=== PATIENT | male | born 1970 | race Caucasian/White ===

== ENCOUNTER → 2023-09-05 06:20 | Outpatient (REF) | payer MEDICARE, OTHER, SELFPAY ==
[2023-09-05 06:49] LABS: % Eosinophils 2.4 % (0-6); % Immature Granulocytes 0.2 % (0-0.5); % Lymphocytes 43.9 % (20.5-51.1); % Monocytes 9.6 % (1.7-9.3); % Neutrophils 42.9 % (42.2-75.2); Absolute Basophils 0.1 10^3/uL (0-0.2); Absolute Eosinophils 0.1 10^3/uL (0-0.7); Absolute Lymphocytes 2.6 10^3/uL (1.2-3.4); Absolute Monocytes 0.6 10^3/uL (0.1-0.6); Absolute Neutrophils 2.6 10^3/uL (1.4-6.5); Hematocrit 44.8 % (39.0-52.0); Hemoglobin 15.1 g/dL (13.0-18.0); Mean Corp Hgb Conc. 33.7 g/dL (33.0-37.0); Mean Corpuscular Hgb 28.3 pg (27.0-31.0); Mean Corpuscular Volume 83.9 fL (80.0-94.0); Mean Platelet Volume 9.7 fL (7.4-10.4); Nucleated Red Blood Cells % 0 % (-); Platelet Count 169 10^3/uL (130-400); Red Blood Cell Count 5.34 10^6/uL (4.70-6.10); Red Cell Dist. Width 13.6 % (11.5-14.5); White Blood Cell Count 5.9 10^3/uL (4.8-10.8)
[2023-09-05 07:30] LABS: ALT (SGPT) 19 U/L (0-50); AST (SGOT) 38 U/L (17-59); Alkaline Phosphatase 63 U/L (38-126); Blood Urea Nitrogen 10 mg/dl (9-20); Calcium 9.7 mg/dl (8.4-10.2); Carbon Dioxide 32 mmol/L (22-30); Chloride 104 mmol/L (98-107); Glucose 109 mg/dl (70-99); HDL Cholesterol 44 mg/dl; LDL Cholesterol, Calculated 43 mg/dl; Potassium 4.3 mmol/L (3.5-5.1); Sodium 139 mmol/L (135-145); Total Cholesterol 129 mg/dl (50-199); Total Protein 6.7 g/dl (6.3-8.2); Triglyceride 214 mg/dl (10-149); Very Low Density Lipoprotein 42 mg/dl (0-30); eGFR > 60.00
[2023-09-05 07:34] LABS: Free T4 1.45 ng/dl (0.78-2.19)
[2023-09-05 09:22] LABS: Glycohemoglobin (HgbA1c) 5.9 % (4.0-5.6)
[2023-09-06 21:27] LABS: % Free Testosterone 1.7 % (1.6-2.9); Free Testosterone 48 pg/mL (47-244); Sex Hormone Binding Globulin 35 nmol/L (19-76); Total Testosterone 279 ng/dL (300-890)
== END ==
LOC: REG 06:20
PROVIDERS: ATTENDING PHYSICIAN Student in an Organized Health Care Education/Training Program
DX: D35.2 Benign neoplasm of pituitary gland (principal); E23.0 Hypopituitarism; E11.9 Type 2 diabetes mellitus without complications; E03.9 Hypothyroidism, unspecified; E78.5 Hyperlipidemia, unspecified
CPT/HCPCS: 36415; 80053; 80061; 83036; 84270; 84402; 84403; 84439; 84443; 85025

== ENCOUNTER → 2023-09-22 06:38 | Outpatient (REF) | payer MEDICARE, OTHER, SELFPAY ==
[2023-09-22 08:03] LABS: Depakane 74.7 ug/ml (50.0-120.0)
[2023-09-22 08:29] LABS: Prolactin 12.8 ng/ml (3.7-17.9)
[2023-09-22 08:30] LABS: ALT (SGPT) 18 U/L (0-50); AST (SGOT) 31 U/L (17-59); Albumin 4.1 g/dl (3.5-5.0); Alkaline Phosphatase 71 U/L (38-126); Blood Urea Nitrogen 15 mg/dl (9-20); Calcium 9.5 mg/dl (8.4-10.2); Carbon Dioxide 27 mmol/L (22-30); Chloride 107 mmol/L (98-107); Glucose 106 mg/dl (70-99); Magnesium 1.7 mg/dl (1.6-2.3); Potassium 4.2 mmol/L (3.5-5.1); Sodium 139 mmol/L (135-145); Total Bilirubin 0.6 mg/dl (0.2-1.3); Total Protein 6.7 g/dl (6.3-8.2); eGFR > 60.00
== END ==
LOC: REG 06:38
PROVIDERS: ATTENDING PHYSICIAN Nurse Practitioner Adult Health; FAMILY PHYSICIAN Internal Medicine Gastroenterology
DX: Z01.818 Encounter for other preprocedural examination (principal); F31.30 Bipolar disorder, current episode depressed, mild or moderate severity, unspecified; Z79.899 Other long term (current) drug therapy; K31.84 Gastroparesis
CPT/HCPCS: 36415; 80053; 80164; 83735; 84146; 93005

== ENCOUNTER → 2024-01-09 06:39 | Outpatient (REF) | payer MEDICARE, OTHER, SELFPAY ==
[2024-01-09 07:24] LABS: % Eosinophils 2.5 % (0-6); % Immature Granulocytes 0.4 % (0-0.5); % Lymphocytes 41.8 % (20.5-51.1); % Monocytes 9.8 % (1.7-9.3); % Neutrophils 44.5 % (42.2-75.2); Absolute Basophils 0.1 10^3/uL (0-0.2); Absolute Eosinophils 0.2 10^3/uL (0-0.7); Absolute Lymphocytes 3.2 10^3/uL (1.2-3.4); Absolute Monocytes 0.8 10^3/uL (0.1-0.6); Absolute Neutrophils 3.4 10^3/uL (1.4-6.5); Hematocrit 42.9 % (39.0-52.0); Hemoglobin 14.5 g/dL (13.0-18.0); Mean Corp Hgb Conc. 33.8 g/dL (33.0-37.0); Mean Platelet Volume 9.7 fL (7.4-10.4); Nucleated Red Blood Cells % 0 % (-); Platelet Count 164 10^3/uL (130-400); Red Blood Cell Count 5.17 10^6/uL (4.70-6.10); Red Cell Dist. Width 14.5 % (11.5-14.5); White Blood Cell Count 7.7 10^3/uL (4.8-10.8)
[2024-01-09 08:00] LABS: ALT (SGPT) 13 U/L (0-50); AST (SGOT) 27 U/L (17-59); Albumin 4.3 g/dl (3.5-5.0); Alkaline Phosphatase 60 U/L (38-126); Blood Urea Nitrogen 16 mg/dl (9-20); Calcium 10.1 mg/dl (8.4-10.2); Carbon Dioxide 31 mmol/L (22-30); Chloride 103 mmol/L (98-107); Glucose 105 mg/dl (70-99); HDL Cholesterol 44 mg/dl; LDL Cholesterol, Calculated 46 mg/dl; Sodium 140 mmol/L (135-145); Total Cholesterol 125 mg/dl (50-199); Total Protein 6.8 g/dl (6.3-8.2); Triglyceride 179 mg/dl (10-149); Very Low Density Lipoprotein 35 mg/dl (0-30); eGFR > 60.00
[2024-01-09 08:04] LABS: Potassium 4.5 mmol/L (3.5-5.1)
== END ==
LOC: REG 06:39
PROVIDERS: ATTENDING PHYSICIAN Nurse Practitioner Family
DX: R79.89 Other specified abnormal findings of blood chemistry (principal); E78.00 Pure hypercholesterolemia, unspecified
CPT/HCPCS: 36415; 80053; 80061; 85025

== ENCOUNTER → 2024-01-19 06:21 | Outpatient (REF) | payer MEDICARE, OTHER, SELFPAY ==
[2024-01-19 09:19] LABS: Lithium 0.8 mmol/L (0.6-1.2)
== END ==
LOC: REG 06:21
PROVIDERS: ATTENDING PHYSICIAN Psychiatry & Neurology Psychiatry; FAMILY PHYSICIAN Nurse Practitioner Family
DX: Z79.899 Other long term (current) drug therapy (principal); F31.30 Bipolar disorder, current episode depressed, mild or moderate severity, unspecified
CPT/HCPCS: 36415; 80178

== ENCOUNTER 2024-01-19 19:01 | Emergency (ER) | payer OTHER, SELFPAY ==
[2024-01-19] VITALS (7 sets, daily range): BP systolic 110–129; BP diastolic 84–104; BMI 30.6
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
[2024-01-19] MEDS: SOLU-CORTEF 200 MG IV (19:58)
[2024-01-19] MEDS: BENADRYL 50 MG IV (19:58)
[2024-01-19 20:03] LABS: % Basophils 0.6 % (0-2); % Eosinophils 2.2 % (0-6); % Immature Granulocytes 0.3 % (0-0.5); % Lymphocytes 25.8 % (20.5-51.1); % Neutrophils 63.1 % (42.2-75.2); Absolute Basophils 0.1 10^3/uL (0-0.2); Absolute Eosinophils 0.2 10^3/uL (0-0.7); Absolute Lymphocytes 2.4 10^3/uL (1.2-3.4); Absolute Monocytes 0.8 10^3/uL (0.1-0.6); Absolute Neutrophils 5.9 10^3/uL (1.4-6.5); Hematocrit 41.2 % (39.0-52.0); Hemoglobin 14.1 g/dL (13.0-18.0); Mean Corp Hgb Conc. 34.2 g/dL (33.0-37.0); Mean Corpuscular Volume 81.7 fL (80.0-94.0); Mean Platelet Volume 9.9 fL (7.4-10.4); Nucleated Red Blood Cells % 0 % (-); Platelet Count 161 10^3/uL (130-400); Red Blood Cell Count 5.04 10^6/uL (4.70-6.10); Red Cell Dist. Width 14.3 % (11.5-14.5); White Blood Cell Count 9.4 10^3/uL (4.8-10.8)
[2024-01-19 20:25] LABS: ALT (SGPT) 16 U/L (0-50); AST (SGOT) 37 U/L (17-59); Alkaline Phosphatase 59 U/L (38-126); Blood Urea Nitrogen 13 mg/dl (9-20); Calcium 9.6 mg/dl (8.4-10.2); Carbon Dioxide 28 mmol/L (22-30); Chloride 107 mmol/L (98-107); Glucose 141 mg/dl (70-99); Sodium 140 mmol/L (135-145); Total Protein 6.3 g/dl (6.3-8.2); eGFR > 60.00
[2024-01-19] MEDS: OFIRMEV 100 IV (21:26)
[2024-01-20] VITALS: BP 113/91
[2024-01-20] MEDS: MORPHINE SULFATE 4 MG IV (00:06)
[2024-01-20] MEDS: DEPAKOTE ER (24 HR RELEASE) 500 MG PO (00:36)
[2024-01-20] MEDS: ESKALITH REGULAR RELEASE 300 MG PO (00:36)
[2024-01-20] MEDS: REMERON 30 MG PO (00:36)
[2024-01-20] MEDS: PROTONIX 40 MG PO (00:37)
[2024-01-20] MEDS: LIPITOR 80 MG PO (00:37)
[2024-01-20 01:00] VITALS: BP 117/92
== END 2024-01-20 01:24 | disposition short-term general hospital (02) ==
LOC: EMR 19:01
PROVIDERS: Nurse Practitioner; EMERGENCY PHYSICIAN Emergency Medicine; FAMILY PHYSICIAN Nurse Practitioner Family
DX: S22.32XA Fracture of one rib, left side, initial encounter for closed fracture (principal); S30.1XXA Contusion of abdominal wall, initial encounter; S32.018A Other fracture of first lumbar vertebra, initial encounter for closed fracture; S32.028A Other fracture of second lumbar vertebra, initial encounter for closed fracture; V89.2XXA Person injured in unspecified motor-vehicle accident, traffic, initial encounter; I48.91 Unspecified atrial fibrillation; F31.9 Bipolar disorder, unspecified; I45.6 Pre-excitation syndrome; J45.909 Unspecified asthma, uncomplicated; K21.9 Gastro-esophageal reflux disease without esophagitis; I10 Essential (primary) hypertension; E78.00 Pure hypercholesterolemia, unspecified; E11.43 Type 2 diabetes mellitus with diabetic autonomic (poly)neuropathy; K31.84 Gastroparesis; E03.9 Hypothyroidism, unspecified
CPT/HCPCS: 99284; 96374; 96375; 70450; 71260; 72125; 74177; 80053; 85025; 93005; Q9967

== ENCOUNTER → 2024-02-10 06:24 | Outpatient (REF) | payer OTHER, SELFPAY | LOC: RAD 06:24 | PROVIDERS: FAMILY PHYSICIAN Nurse Practitioner Family | DX: S22.20XA Unspecified fracture of sternum, initial encounter for closed fracture (principal) | CPT/HCPCS: 71046 ==

== ENCOUNTER → 2024-02-10 06:30 | Outpatient (REF) | payer OTHER, SELFPAY ==
[2024-02-10 08:41] LABS: ALT (SGPT) 14 U/L (0-50); AST (SGOT) 29 U/L (17-59); Albumin 4.1 g/dl (3.5-5.0); Alkaline Phosphatase 106 U/L (38-126); Blood Urea Nitrogen 13 mg/dl (9-20); Calcium 9.8 mg/dl (8.4-10.2); Carbon Dioxide 30 mmol/L (22-30); Chloride 106 mmol/L (98-107); Glucose 120 mg/dl (70-99); Magnesium 2.1 mg/dl (1.6-2.3); Potassium 4.5 mmol/L (3.5-5.1); Sodium 141 mmol/L (135-145); Total Protein 6.4 g/dl (6.3-8.2); eGFR > 60.00
[2024-02-10 08:44] LABS: Prolactin 10.4 ng/ml (3.7-17.9)
[2024-02-10 11:27] LABS: % Basophils 1.1 % (0-2); % Eosinophils 2.6 % (0-6); % Immature Granulocytes 0.3 % (0-0.5); % Lymphocytes 30.8 % (20.5-51.1); % Monocytes 7.1 % (1.7-9.3); % Neutrophils 58.1 % (42.2-75.2); Absolute Basophils 0.1 10^3/uL (0-0.2); Absolute Eosinophils 0.2 10^3/uL (0-0.7); Absolute Lymphocytes 1.9 10^3/uL (1.2-3.4); Absolute Monocytes 0.4 10^3/uL (0.1-0.6); Absolute Neutrophils 3.6 10^3/uL (1.4-6.5); Hematocrit 39.3 % (39.0-52.0); Hemoglobin 12.6 g/dL (13.0-18.0); Mean Corp Hgb Conc. 32.1 g/dL (33.0-37.0); Mean Corpuscular Hgb 28.9 pg (27.0-31.0); Mean Corpuscular Volume 90.1 fL (80.0-94.0); Mean Platelet Volume 10.3 fL (7.4-10.4); Nucleated Red Blood Cells % 0 % (-); Platelet Count 240 10^3/uL (130-400); Red Blood Cell Count 4.36 10^6/uL (4.70-6.10); Red Cell Dist. Width 15.1 % (11.5-14.5); White Blood Cell Count 6.2 10^3/uL (4.8-10.8)
== END ==
LOC: RCS 06:30
PROVIDERS: FAMILY PHYSICIAN Nurse Practitioner Family
DX: K31.84 Gastroparesis (principal)
CPT/HCPCS: 36415; 80053; 83735; 84146; 85025; 93005

== ENCOUNTER → 2024-02-27 06:17 | Outpatient (REF) | payer MEDICARE, OTHER, SELFPAY ==
[2024-02-27 07:56] LABS: % Basophils 1.2 % (0-2); % Eosinophils 3.4 % (0-6); % Immature Granulocytes 0.3 % (0-0.5); % Lymphocytes 33.4 % (20.5-51.1); % Monocytes 7.7 % (1.7-9.3); Absolute Basophils 0.1 10^3/uL (0-0.2); Absolute Eosinophils 0.3 10^3/uL (0-0.7); Absolute Lymphocytes 2.6 10^3/uL (1.2-3.4); Absolute Monocytes 0.6 10^3/uL (0.1-0.6); Absolute Neutrophils 4.2 10^3/uL (1.4-6.5); Hematocrit 42.2 % (39.0-52.0); Hemoglobin 13.6 g/dL (13.0-18.0); Mean Corp Hgb Conc. 32.2 g/dL (33.0-37.0); Mean Corpuscular Hgb 27.8 pg (27.0-31.0); Mean Corpuscular Volume 86.3 fL (80.0-94.0); Mean Platelet Volume 9.9 fL (7.4-10.4); Nucleated Red Blood Cells % 0 % (-); Platelet Count 195 10^3/uL (130-400); Red Blood Cell Count 4.89 10^6/uL (4.70-6.10); Red Cell Dist. Width 14.1 % (11.5-14.5); White Blood Cell Count 7.7 10^3/uL (4.8-10.8)
[2024-02-27 08:08] LABS: ALT (SGPT) 13 U/L (0-50); AST (SGOT) 27 U/L (17-59); Albumin 4.4 g/dl (3.5-5.0); Alkaline Phosphatase 75 U/L (38-126); Blood Urea Nitrogen 14 mg/dl (9-20); Calcium 10.2 mg/dl (8.4-10.2); Carbon Dioxide 28 mmol/L (22-30); Chloride 102 mmol/L (98-107); Glucose 111 mg/dl (70-99); Potassium 4.1 mmol/L (3.5-5.1); Sodium 140 mmol/L (135-145); Total Bilirubin 0.9 mg/dl (0.2-1.3); Total Protein 6.8 g/dl (6.3-8.2); eGFR 56.02
[2024-02-27 08:18] LABS: Free T4 1.23 ng/dl (0.78-2.19)
[2024-02-27 08:33] LABS: TSH 1.66 uIU/ml (0.47-4.68)
[2024-02-27 09:01] LABS: Glycohemoglobin (HgbA1c) 4.7 % (4.0-5.6)
[2024-02-29 02:46] LABS: % Free Testosterone 1.8 % (1.6-2.9); Free Testosterone 53 pg/mL (47-244); Sex Hormone Binding Globulin 34 nmol/L (19-76); Total Testosterone 298 ng/dL (300-890)
== END ==
LOC: REG 06:17
PROVIDERS: ATTENDING PHYSICIAN Physician Assistant; FAMILY PHYSICIAN Nurse Practitioner Family
DX: E03.9 Hypothyroidism, unspecified (principal); E23.0 Hypopituitarism; E11.9 Type 2 diabetes mellitus without complications; Z12.5 Encounter for screening for malignant neoplasm of prostate
CPT/HCPCS: 36415; 80053; 83036; 84270; 84402; 84403; 84439; 84443; 85025; G0103

== ENCOUNTER → 2024-03-23 06:26 | Outpatient (REF) | payer MEDICARE, OTHER, SELFPAY ==
[2024-03-23 07:49] LABS: Osmolality Urine 133 mOsm/kg (300-900)
[2024-03-23 08:06] LABS: Calcium 10.3 mg/dl (8.4-10.2); Lithium 0.8 mmol/L (0.6-1.2)
[2024-03-23 08:09] LABS: Blood Urea Nitrogen 13 mg/dl (9-20); Calcium 10.5 mg/dl (8.4-10.2); Carbon Dioxide 28 mmol/L (22-30); Chloride 100 mmol/L (98-107); Glucose 119 mg/dl (70-99); Phosphorus 4.1 mg/dl (2.5-4.5); Potassium 4.3 mmol/L (3.5-5.1); Sodium 142 mmol/L (135-145); eGFR > 60.00
[2024-03-23 08:16] LABS: Urine Protein 13 mg/dl (0-12)
== END ==
LOC: REG 06:26
PROVIDERS: ATTENDING PHYSICIAN Psychiatry & Neurology Psychiatry; FAMILY PHYSICIAN Nurse Practitioner Family; REFERRING PHYSICIAN Specialist
DX: F31.30 Bipolar disorder, current episode depressed, mild or moderate severity, unspecified (principal); N18.31 Chronic kidney disease, stage 3a; R80.8 Other proteinuria
CPT/HCPCS: 36415; 80048; 80178; 82570; 83935; 83970; 84100; 84156

== ENCOUNTER → 2024-04-20 06:20 | Outpatient (REF) | payer MEDICARE, OTHER, SELFPAY ==
[2024-04-20 07:51] LABS: Lithium 0.9 mmol/L (0.6-1.2)
== END ==
LOC: REG 06:20
PROVIDERS: ATTENDING PHYSICIAN Psychiatry & Neurology Psychiatry; FAMILY PHYSICIAN Nurse Practitioner Family
DX: F31.30 Bipolar disorder, current episode depressed, mild or moderate severity, unspecified (principal)
CPT/HCPCS: 36415; 80178

== ENCOUNTER → 2024-06-29 06:19 | Outpatient (REF) | payer MEDICARE, OTHER, SELFPAY ==
[2024-06-29 07:27] LABS: Lithium 0.9 mmol/L (0.6-1.2)
== END ==
LOC: REG 06:19
PROVIDERS: ATTENDING PHYSICIAN Psychiatry & Neurology Psychiatry; FAMILY PHYSICIAN Nurse Practitioner Family
DX: F31.30 Bipolar disorder, current episode depressed, mild or moderate severity, unspecified (principal)
CPT/HCPCS: 36415; 80178

== ENCOUNTER → 2024-07-10 06:26 | Outpatient (REF) | payer MEDICARE, OTHER, SELFPAY ==
[2024-07-10 07:43] LABS: % Basophils 1.1 % (0-2); % Eosinophils 2.7 % (0-6); % Immature Granulocytes 0.1 % (0-0.5); % Lymphocytes 27.9 % (20.5-51.1); % Monocytes 7.1 % (1.7-9.3); % Neutrophils 61.1 % (42.2-75.2); Absolute Basophils 0.1 10^3/uL (0-0.2); Absolute Eosinophils 0.2 10^3/uL (0-0.7); Absolute Monocytes 0.5 10^3/uL (0.1-0.6); Absolute Neutrophils 4.5 10^3/uL (1.4-6.5); Hematocrit 45.3 % (39.0-52.0); Hemoglobin 14.1 g/dL (13.0-18.0); Mean Corp Hgb Conc. 31.1 g/dL (33.0-37.0); Mean Corpuscular Hgb 25.9 pg (27.0-31.0); Mean Corpuscular Volume 83.1 fL (80.0-94.0); Mean Platelet Volume 10.5 fL (7.4-10.4); Nucleated Red Blood Cells % 0 % (-); Platelet Count 210 10^3/uL (130-400); Red Blood Cell Count 5.45 10^6/uL (4.70-6.10); Red Cell Dist. Width 14.3 % (11.5-14.5); White Blood Cell Count 7.3 10^3/uL (4.8-10.8)
[2024-07-10 08:02] LABS: ALT (SGPT) 19 U/L (0-50); AST (SGOT) 32 U/L (17-59); Albumin 4.6 g/dl (3.5-5.0); Alkaline Phosphatase 59 U/L (38-126); Blood Urea Nitrogen 14 mg/dl (9-20); Calcium 10.2 mg/dl (8.4-10.2); Carbon Dioxide 31 mmol/L (22-30); Chloride 100 mmol/L (98-107); Glucose 109 mg/dl (70-99); Potassium 4.3 mmol/L (3.5-5.1); Sodium 139 mmol/L (135-145); Total Protein 6.9 g/dl (6.3-8.2); eGFR 51.52
[2024-07-10 08:20] LABS: Free T4 1.44 ng/dl (0.78-2.19); Prolactin 12.7 ng/ml (3.7-17.9)
[2024-07-10 08:34] LABS: TSH 1.68 uIU/ml (0.47-4.68)
[2024-07-12 00:35] LABS: IGF-1 Z Score Calculation 1.1; Insulin-like Growth Factor I 179 ng/mL (65-222)
== END ==
LOC: REG 06:26
PROVIDERS: ATTENDING PHYSICIAN Physician Assistant; FAMILY PHYSICIAN Nurse Practitioner Family
DX: D35.2 Benign neoplasm of pituitary gland (principal); E03.9 Hypothyroidism, unspecified
CPT/HCPCS: 36415; 80053; 84146; 84305; 84403; 84439; 84443; 85025

== ENCOUNTER → 2024-08-18 07:04 | Outpatient (REF) | payer MEDICARE, OTHER, SELFPAY | LOC: REG 07:04 | PROVIDERS: ATTENDING PHYSICIAN Psychiatry & Neurology Psychiatry; FAMILY PHYSICIAN Nurse Practitioner Family | DX: F31.32 Bipolar disorder, current episode depressed, moderate (principal) | CPT/HCPCS: 36415; 80178 ==

== ENCOUNTER 2024-08-27 15:38 | Emergency (ER) | payer MEDICARE, OTHER, SELFPAY ==
[2024-08-27 16:08] VITALS: BP 150/95
== END 2024-08-27 16:14 | disposition left against medical advice (07) ==
LOC: EMR 15:38
PROVIDERS: EMERGENCY PHYSICIAN Emergency Medicine
DX: I48.91 Unspecified atrial fibrillation (principal); Z53.21 Procedure and treatment not carried out due to patient leaving prior to being seen by health care provider
CPT/HCPCS: 93005

== ENCOUNTER → 2024-09-24 06:25 | Outpatient (REF) | payer MEDICARE, OTHER, SELFPAY ==
[2024-09-24 07:40] LABS: % Basophils 1.1 % (0-2); % Eosinophils 3.3 % (0-6); % Immature Granulocytes 0.3 % (0-0.5); % Monocytes 7.5 % (1.7-9.3); % Neutrophils 59.8 % (42.2-75.2); Absolute Basophils 0.1 10^3/uL (0-0.2); Absolute Eosinophils 0.3 10^3/uL (0-0.7); Absolute Lymphocytes 2.1 10^3/uL (1.2-3.4); Absolute Monocytes 0.6 10^3/uL (0.1-0.6); Absolute Neutrophils 4.6 10^3/uL (1.4-6.5); Hematocrit 45.3 % (39.0-52.0); Mean Corp Hgb Conc. 30.9 g/dL (33.0-37.0); Mean Platelet Volume 10.1 fL (7.4-10.4); Nucleated Red Blood Cells % 0 % (-); Platelet Count 216 10^3/uL (130-400); Red Blood Cell Count 5.39 10^6/uL (4.70-6.10); Red Cell Dist. Width 15.1 % (11.5-14.5); White Blood Cell Count 7.6 10^3/uL (4.8-10.8)
[2024-09-24 08:18] LABS: Magnesium 2.1 mg/dl (1.6-2.3); Phosphorus 3.9 mg/dl (2.5-4.5)
[2024-09-24 18:48] LABS: Prolactin 14.7 ng/ml (3.7-17.9)
== END ==
LOC: RCS 06:25
PROVIDERS: ATTENDING PHYSICIAN Internal Medicine Gastroenterology; FAMILY PHYSICIAN Nurse Practitioner Family
DX: K31.84 Gastroparesis (principal); Z51.89 Encounter for other specified aftercare
CPT/HCPCS: 36415; 83735; 84100; 84146; 85025; 93005

== ENCOUNTER → 2024-12-31 06:33 | Outpatient (REF) | payer MEDICARE, OTHER, SELFPAY ==
[2024-12-31 14:13] LABS: Lithium 0.9 mmol/L (0.6-1.2)
== END ==
LOC: REG 06:33
PROVIDERS: ATTENDING PHYSICIAN Psychiatry & Neurology Psychiatry; FAMILY PHYSICIAN Nurse Practitioner Family
DX: F31.4 Bipolar disorder, current episode depressed, severe, without psychotic features (principal)
CPT/HCPCS: 36415; 80178

== ENCOUNTER → 2025-02-25 06:25 | Outpatient (REF) | payer MEDICARE, OTHER, SELFPAY ==
[2025-02-25 08:08] LABS: Hematocrit 44.8 % (39.0-52.0); Hemoglobin 13.7 g/dL (13.0-18.0); Mean Corp Hgb Conc. 30.6 g/dL (33.0-37.0); Mean Corpuscular Volume 85.2 fL (80.0-94.0); Nucleated Red Blood Cells % 0 % (-); Platelet Count 154 10^3/uL (130-400); Red Cell Dist. Width 14.4 % (11.5-14.5)
[2025-02-25 08:59] LABS: ALT (SGPT) 12 U/L (0-50); AST (SGOT) 23 U/L (17-59); Albumin 4.2 g/dl (3.5-5.0); Alkaline Phosphatase 60 U/L (38-126); Blood Urea Nitrogen 13 mg/dl (9-20); Calcium 9.7 mg/dl (8.4-10.2); Carbon Dioxide 31 mmol/L (22-30); Chloride 107 mmol/L (98-107); Glucose 106 mg/dl (70-99); HDL Cholesterol 44 mg/dl; LDL Cholesterol, Calculated 66 mg/dl; Magnesium 2.1 mg/dl (1.6-2.3); Potassium 4.7 mmol/L (3.5-5.1); Sodium 143 mmol/L (135-145); Total Protein 6.6 g/dl (6.3-8.2); Very Low Density Lipoprotein 22 mg/dl (0-30); eGFR 55.67
[2025-02-25 09:12] LABS: TSH 1.97 uIU/ml (0.47-4.68)
== END ==
LOC: REG 06:25
PROVIDERS: ATTENDING PHYSICIAN Internal Medicine Gastroenterology; FAMILY PHYSICIAN Nurse Practitioner Family; OTHER PHYSICIAN Internal Medicine Cardiovascular Disease; OTHER PHYSICIAN Student in an Organized Health Care Education/Training Program
DX: K31.84 Gastroparesis (principal); E23.0 Hypopituitarism; D35.2 Benign neoplasm of pituitary gland; N18.31 Chronic kidney disease, stage 3a; E78.5 Hyperlipidemia, unspecified; E03.9 Hypothyroidism, unspecified; E78.2 Mixed hyperlipidemia
CPT/HCPCS: 36415; 80053; 80061; 83735; 84146; 84270; 84402; 84403; 84439; 84443; 85025; 93005

== ENCOUNTER → 2025-04-22 06:42 | Outpatient (REF) | payer MEDICARE, OTHER, SELFPAY ==
[2025-04-22 08:25] LABS: Lithium 0.8 mmol/L (0.6-1.2)
== END ==
LOC: REG 06:42
PROVIDERS: ATTENDING PHYSICIAN Psychiatry & Neurology Psychiatry; FAMILY PHYSICIAN Nurse Practitioner Family
DX: F31.30 Bipolar disorder, current episode depressed, mild or moderate severity, unspecified (principal)
CPT/HCPCS: 36415; 80178